=== PATIENT | female | born 1955 | race Caucasian/White ===

== ENCOUNTER 2016-04-25 14:05 | Emergency (ER) | payer BC ==
[~2016-04-25] VITALS: Ht 154.9 cm; Wt 68.2 kg
[2016-04-25 14:06] VITALS: BP 117/65; PULSE 66; TEMP 98.6
[2016-04-25] MEDS ORDERED: VALTREX 50500 MG/TAB PO (14:24)
[2016-04-25] MEDS ORDERED: NORVASC 10MG10 MG PO (14:25)
[2016-04-25] MEDS ORDERED: HCTZ 25MG TAB25 MG PO (14:25)
[2016-04-25] MEDS ORDERED: NORCO 325 MG-51 TAB PO (14:25)
[2016-04-25] MEDS ORDERED: FORTEO250 MCG/ML (14:26)
[2016-04-25] MEDS ORDERED: DIOVAN 160MG160 MG PO (14:26)
[2016-04-25] MEDS ORDERED: IMURAN 50MG TAB50 MG PO (14:26)
[2016-04-25] MEDS ORDERED: LEXAPRO 10MG10 MG PO (14:26)
== END 2016-04-25 15:40 | disposition home or self-care (01) ==
LOC: COL.ER 14:05
DX: S09.90XA Unspecified injury of head, initial encounter (principal); S96.911A Strain of unspecified muscle and tendon at ankle and foot level, right foot, initial encounter; S01.03XA Puncture wound without foreign body of scalp, initial encounter; W01.198A Fall on same level from slipping, tripping and stumbling with subsequent striking against other object, initial encounter; R40.2412 Glasgow coma scale score 13-15, at arrival to emergency department; Z23 Encounter for immunization